=== PATIENT | female | born 1980 | race Caucasian/White ===

== ENCOUNTER 2019-04-06 14:25 | Emergency (ER) | payer OTHER, BC ==
[2019-04-06] MEDS ORDERED: CHERRY SYRUP 10 ML UDC PO ONE (15:36)
[2019-04-06] MEDS ORDERED: DEXAMETHASONE 10 MG/ML VIAL PO STA (15:36)
[2019-04-06] MEDS ORDERED: ACYCLOVIR 200 MG CAPSULE PO STA (15:36)
--- NOTE | 2019-04-06 15:36 | ED Physician Documentation ---
PD HPI SKIN - Stated complaint Stated Complaint: BLISTERED RASH ON BREASTS & BACK/DIFFICULTY BREATH - Chief complaint Chief Complaint: Wound - History obtained from History obtained from: Patient - History of Present Illness Timing - onset: How many days ago (4) Timing - duration: Days (4) Timing - details: Gradual onset (had feeling of dyspnea and then pain left lateral chest below breast and on side of chest. Then pain to left back. Noted rash under lateral aspect of breast today.) Location: Chest (left anterolateral chest under breast and on midaxillary line. Also some rash/pain on left back.) Quality / character: Painful, Vesicular Associated symptoms: Myalgias, Other (feeling of malaise for few days, and then chest pain and now rash.). No: Fever, Headache, N/V/D Contributing factors: No: Insect bite /sting Similar symptoms before: Has not had sx before Recently seen: Not recently seen Review of Systems Constitutional: reports: Myalgias, Fatigue. denies: Fever, Chills Nose: denies: Rhinorrhea / runny nose, Congestion Throat: denies: Sore throat Cardiac: reports: Chest pain / pressure. denies: Palpitations Respiratory: denies: Cough GI: reports: Nausea. denies: Abdominal Pain, Vomiting, Diarrhea : denies: Dysuria, Frequency Skin: reports: Rash Neurologic: denies: Focal weakness, Numbness PD PAST MEDICAL HISTORY - Past Medical History Past Medical History: No Cardiovascular: None Respiratory: None Neuro: None Endocrine/Autoimmune: None GI: None IT LEAD: None : None HEENT: None Psych: Depression, Anxiety Musculoskeletal: None Derm: None - Past Surgical History Past Surgical History: No - Present Medications Home Medications: Ambulatory Orders Medication Instructions Recorded Confirmed Amitriptyline [Elavil] 25 mg PO HS #30 tablet 04/06/19 Lidocaine Patch 5% [Lidoderm Patch] 1 patch TOP DAILY PRN #10 patch 04/06/19 Valacyclovir HCl [Valacyclovir] 1,000 mg PO TID #21 tablet 04/06/19 dexAMETHasone [Decadron] 4 mg PO DAILY #7 tablet 04/06/19 - Allergies Allergies/Adverse Reactions: Allergies Allergy/AdvReac Type Severity Reaction Status Date / Time doxycycline Allergy Nausea Verified 04/06/19 14:38 - Social History Does the pt smoke?: No Smoking Status: Never smoker Does the pt drink ETOH?: No Does the pt have substance abuse?: No - Immunizations Immunizations are current?: Yes - POLST Patient has POLST: No PD ED PE NORMAL - Vitals Vital signs reviewed: Yes - General General: Alert and oriented X 3, No acute distress, Well developed/nourished - Neck Neck: Supple, no meningeal sign, No adenopathy - Cardiac Cardiac: RRR, No murmur - Respiratory Respiratory: No respiratory distress, Clear bilaterally - Abdomen Abdomen: Normal bowel sounds, Soft, Non tender, Non distended - Derm Derm: Normal color, Warm and dry, Other (there is patches of vesicular rash on red base on left thoracic back about T5 level, wrapping laterally to side of chest and then to just under breast on left side, around to the lower sternal area. ) - Neuro Neuro: Alert and oriented X 3, No motor deficit, No sensory deficit, Normal speech Results - Vitals Vitals: Vital Signs - 24 hr 04/06/19 04/06/19 14:34 16:00 Temperature 36.4 C L Heart Rate 86 82 Respiratory 19 18 Rate Blood Pressure 117/76 109/77 O2 Saturation 98 98 Oxygen O2 Source Room air PD MEDICAL DECISION MAKING - ED course Complexity details: considered differential (looks and sounds like shingles rash and story. ), d/w patient Departure - Departure Disposition: 01 Home, Self Care Clinical Impression: Shingles outbreak Qualifiers: Herpes zoster complications: without complications Qualified Code(s): B02.9 - Zoster without complications Condition: Stable Record reviewed to determine appropriate education?: Yes Instructions: ED Shingles Follow-Up: [facility] [Primary Care Provider] - Prescriptions: Amitriptyline [Elavil] 25 mg PO HS #30 tablet dexAMETHasone [Decadron] 4 mg PO DAILY #7 tablet Lidocaine Patch 5% [Lidoderm Patch] 1 patch TOP DAILY PRN #10 patch PRN Reason: pain Valacyclovir HCl [Valacyclovir] 1,000 mg PO TID #21 tablet Comments: You want to have the fluids from the rash covered and wash your hands well. That would mitigate concerns for an activity. Ibuprofen or naproxen, Tylenol, or lidocaine patches as needed for the pain of it. Valacyclovir 3 times a day for a week to reduce the viral outbreak. Decadron daily for a week to reduce the nerve inflammation. Elavil nightly for the next several weeks to reduce the duration of the pain from this. You should be getting close to the peak of the symptoms and it should improve with the above medications started as well. Recheck if signs of secondary infection with spreading redness beyond the swatch involved or fussiness. Your prescriptions were transmitted to [facility] [place] in [place]. Discharge Date/Time: 04/06/19 16:03
[2019-04-06 16:01] VITALS: BP 109/77
== END 2019-04-06 16:03 | disposition home or self-care (01) ==
LOC: ED 14:25
DX: B02.9 Zoster without complications (principal)
CPT/HCPCS: 99283; 99284; A9270

== ENCOUNTER 2019-06-01 14:06 | Outpatient (CLI) | payer OTHER, BC ==
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
== END 2019-06-01 14:07 | disposition home or self-care (01) ==
LOC: SC 14:06
PROVIDERS: ATTEND Internal Medicine Pulmonary Disease
DX: G47.8 Other sleep disorders (principal); G47.10 Hypersomnia, unspecified; R53.83 Other fatigue
CPT/HCPCS: 99203; 99212

== ENCOUNTER 2019-07-08 19:30 | Outpatient (CLI) | payer OTHER, BC | END 2019-07-08 23:59 | disposition home or self-care (01) | LOC: SC 19:30 | PROVIDERS: ATTEND Internal Medicine Pulmonary Disease | DX: G47.33 Obstructive sleep apnea (adult) (pediatric) (principal) | CPT/HCPCS: 95806 ==

== ENCOUNTER 2020-06-13 10:04 | Outpatient (CLI) | payer OTHER, BC | END 2020-06-13 10:05 | disposition home or self-care (01) | LOC: COV 10:04 | PROVIDERS: ATTEND Family Medicine | DX: R50.9 Fever, unspecified (principal); Z20.828 Contact with and (suspected) exposure to other viral communicable diseases; M79.10 Myalgia, unspecified site; R53.83 Other fatigue; R19.7 Diarrhea, unspecified; R09.81 Nasal congestion; J02.9 Acute pharyngitis, unspecified ==

== ENCOUNTER 2022-11-28 08:00 | Outpatient (CLI) | payer OTHER, BC ==
--- NOTE | 2022-11-28 20:13 | XRAY Report ---
PROCEDURE: Ankle 3 View LT INDICATIONS: LEFT ANKLE PAIN TECHNIQUE: 3 views of the ankle were acquired. COMPARISON: None. FINDINGS: Bones: No fractures or dislocations. Ankle mortise is normally aligned. No suspicious bony lesions . Soft tissues: No tibiotalar joint effusion. IMPRESSION: No acute bony abnormality. If symptoms persist, follow-up radiographs and/or CT or MRI may be helpful for further evaluation. Reviewed by: Gareth Barker MD on 11/28/2022 8:11 PM PDT Approved by: Gareth Barker MD on 11/28/2022 8:11 PM PDT Station ID: [id number]
--- NOTE | 2022-11-28 20:15 | XRAY Report ---
PROCEDURE: Foot 3 View LT INDICATIONS: LEFT FOOT PAIN TECHNIQUE: 3 views of the foot were acquired. COMPARISON: None. FINDINGS: Bones: No fractures or dislocations. No suspicious bony lesions. Mild first MTP joint degenerativ e changes. Soft tissues: No suspicious soft tissue calcifications. IMPRESSION: No acute bony abnormality. If pain persists with conservative management, consider repeat radiographs in 10-14 days or cross-sectional imaging. Reviewed by: Gareth Barker MD on 11/28/2022 8:14 PM PDT Approved by: Gareth Barker MD on 11/28/2022 8:14 PM PDT Station ID: [id number]
== END 2022-11-28 23:59 | disposition home or self-care (01) ==
LOC: DI.S 08:00
PROVIDERS: ATTEND Physician Assistant
DX: M19.072 Primary osteoarthritis, left ankle and foot (principal); M25.572 Pain in left ankle and joints of left foot; M79.672 Pain in left foot